=== PATIENT | female | born 1980 | race Caucasian/White ===

== ENCOUNTER → 2024-03-30 14:33 | Outpatient (REF) | payer BC, SELFPAY | LOC: HWWDC 14:33 | PROVIDERS: ATTENDING PHYSICIAN Nurse Practitioner | DX: Z12.31 Encounter for screening mammogram for malignant neoplasm of breast (principal) | CPT/HCPCS: 77063; 77067 ==

== ENCOUNTER → 2024-07-03 09:29 | Outpatient (REF) | payer BC, SELFPAY | LOC: WDC 09:29 | PROVIDERS: ATTENDING PHYSICIAN Nurse Practitioner | DX: N64.4 Mastodynia (principal) | CPT/HCPCS: 76642; 77061; 77065 ==